=== PATIENT | male | born 1955 | race Caucasian/White ===

== ENCOUNTER → 2018-05-11 | Outpatient (CLI) | payer BC ==
[~2018-05-11] MED LIST: ACET500T68 PO; LOSA1TAB22 PO; MELO15TA23 PO; METO25TA4 PO
[2018-05-11 12:52] LABS: BASO # 0.1 x10^3/uL (0.0-0.2); BASO % 1 % (0-3); EOS # 0.1 x10^3/uL (0.0-0.7); EOS % 2 % (0-3); HEMATOCRIT 44.3 % (39.0-53.0); HEMOGLOBIN 15.2 g/dL (13.0-17.5); LYMPH # 1.8 x10^3/uL (1.0-4.8); LYMPH % 31 % (24-48); MEAN CORPUSCULAR HEMOGLOBIN 31 pg (25-35); MEAN CORPUSCULAR HGB CONC 34 g/dL (31-37); MEAN CORPUSCULAR VOLUME 90 fL (79-100); MONO # 0.5 x10^3/uL (0.0-1.1); MONO % 9 % (0-9); NEUT # 3.3 x10^3uL (1.8-7.7); NEUT % 57 % (31-73); PLATELET COUNT 257 x10^3/uL (140-400); RED CELL DISTRIBUTION WIDTH 14.2 % (11.5-14.5); WHITE BLOOD COUNT 5.8 x10^3/uL (4.0-11.0)
[2018-05-11 13:00] LABS: ALBUMIN 3.5 g/dL (3.4-5.0); CALCIUM 8.9 mg/dL (8.5-10.1); CREATININE 0.9 mg/dL (0.7-1.3); GFR 85.2
== END | disposition home or self-care (01) ==
LOC: SURGPAT 11:25
PROVIDERS: ATTEND Surgery
DX: Z01.818 Encounter for other preprocedural examination (principal); R22.1 Localized swelling, mass and lump, neck
CPT/HCPCS: 36415; 80048; 82040; 85025

== ENCOUNTER 2018-05-13 11:10 | Day surgery (SDC) | payer BC ==
[~2018-05-13] VITALS: Ht 177.8 cm; Wt 161.0 kg
[~2018-05-13 11:10] MED LIST changes: +HYDROmorphone 2 MG/ML VIAL IV PRN; +IV RINGERS,LACTATED 1000ML 1,000 ML IV SCH; +LIDOCAINE 1% PF 2 ML VIAL. ID PRN; +MORPHINE SULFATE 2 MG/ML VIAL. IV PRN; +ONDANSETRON PF 4 MG/2 ML VIAL. IV PRN; +PROCHLORPERAZINE 10 MG/2 ML VIAL. IV PRN; +fentaNYL PF VIAL 100 MCG/2 ML VIAL IV PRN
[2018-05-13] MEDS ORDERED: BUPIVACAINE-EPI 0.5%-1:200000 50 ML VIAL. ONE (11:40)
[2018-05-13] MEDS ORDERED: ONDANSETRON PF 4 MG/2 ML VIAL. ONE (12:15)
[2018-05-13] MEDS ORDERED: LIDOCAINE 2% PF Vial for OR 5 ML VIAL. ONE (12:15)
[2018-05-13] MEDS ORDERED: PROPOFOL 20 ML IV ONE (12:15)
[2018-05-13] MEDS ORDERED: DEXAMETHASONE SOD PHOS 20 MG/5 ML VIAL. ONE (12:15)
[2018-05-13] MEDS ORDERED: fentaNYL PF VIAL 100 MCG/2 ML VIAL ONE (12:16)
[2018-05-13] MEDS ORDERED: PHENYLEPHRINE in 0.9% NACL PF 1 MG/10 ML SYRINGE. IV ONE (12:51)
[2018-05-13] MEDS ORDERED: ePHEDrine PF IN SALINE 50 MG/5 ML DISP.SYRIN IV ONE (12:51)
[2018-05-13] MEDS ORDERED: ceFAZolin SODIUM 1 GM VIAL ONE (12:52)
[2018-05-13] MEDS ORDERED: VASOPRESSIN 20 UNIT/ML VIAL. ONE (12:55)
[2018-05-13] MEDS ORDERED: SEVOFLURANE 31 TO 60 MINUTES. IH ONE (13:13)
--- NOTE | 2018-05-13 14:13 | PDOC ---
BRIEF OPERATIVE NOTE Date: May 13, 2018 Pre-Op Diagnosis mass posterior right neck Post-Op Diagnosis same Procedure Performed excision Surgeon Man Anesthesia Type: General Blood Loss 10cc IV Fluid 400cc Specimens Obtained skin and subcutaneous tissue 9x8x2 cm Findings lobulated fatty tumor Complications none Operative Note Wk # [id number] STEPHANIE LEAL MD May 13, 2018 14:13
--- NOTE | 2018-05-13 14:14 | DISCH ---
DISCHARGE INSTRUCTIONS Condition on Discharge Condition on Discharge: Stable Activity After Discharge Activity Instructions for Disc: Activity as tolerated, Avoid exertion Lifting Instructions after Dis: No heavy lifting Driving Instructions after Dis: Do not drive today Diet after Discharge Diet after Discharge: Regular Wound Incision Care Wound/Incision Care: Ice to area for comfort Other wound/incision instructi: november shower Wednesday Follow-Up Follow up with: Man ten days STEPHANIE LEAL MD May 13, 2018 14:14
[2018-05-13 14:30] VITALS: BP 128/78
--- NOTE | 2018-05-13 17:43 | OP ---
DATE OF SURGERY: 05/13/2018 PREOPERATIVE DIAGNOSIS: Mass, posterior right neck. POSTOPERATIVE DIAGNOSIS: Mass, posterior right neck. PROCEDURE: Excision of same. SPECIMEN: Skin and subcutaneous mass 9 x 8 x 2 cm. SURGEON: Stephanie Leal MD ANESTHESIA: General LMA. ESTIMATED BLOOD LOSS: 10 mL. IV FLUID: 400 mL. INDICATIONS: The patient is an obese male with a large mass posterior to the right side of his neck here for excision. DESCRIPTION OF PROCEDURE: The patient brought to the operating suite, given a general LMA and placed in left lateral decubitus position. The right posterior neck and upper back were prepped and draped in usual sterile fashion. A marking pen has been used in the preop holding area to outline the incision with the patient's assistance. This was infiltrated with local anesthetic, incised and the skin underlying mass removed en bloc. Hemostasis with cautery. When a correct sponge count was obtained, the wound was closed with interrupted inverted 3-0 Vicryl for the subcutaneous tissue. Subcuticular 4-0 Monocryl with Steri-Strips for the skin. Sterile dressing applied. The patient was awakened from his anesthetic after being placed in the supine position. He was taken to the postoperative area in stable condition. STEPHANIE LEAL MD DR: WINNIE/tiffanie JOB#: [id number] / [id number]
--- NOTE | 2018-05-17 10:09 | PATHOLOGY ---
[facility] Accession Number: [id number] . 01 Material submitted: . SKIN SUBCUTANEOUS MASS RIGHT POSTERIOR NECK . 01 Clinical history: . Neck mass. . 02 Diagnosis: Skin and subcutaneous tissue, right posterior neck mass excision: - Lipoma. - Solar degeneration of attached skin. (JPM:[facility] [place]; 05/16/2018) QMS/05/16/2018 . 02 Comment: There is no evidence of malignancy. . 02 Electronically signed: . Pawan Loza MD, Pathologist NPI- [id number] . 01 Gross description: . Received in formalin labeled "Rangel, Usman, skin and subcutaneous mass right posterior neck" is a lepe-yellow encapsulated lobulated mass measuring 7.0 x 4.0 x 3.9 cm. There is an attached portion of skin on one aspect which measures 7.7 x 2.0 x 0.4 cm. The external surface is inked black. The specimen is sectioned to reveal yellow-lepe lobulated cut surface without hemorrhage or necrosis. Insurance Risk Surveyor sections are submitted in cassettes A1-A4, with two sections in each cassette. ([facility] [place]; 05/14/2018) SYC/SYC . 02 Pathologist provided ICD-10: D17.79 . 02 CPT . 784514 Specimen Comment: A courtesy copy of this report has been sent to Specimen Comment: [phone], . Specimen Comment: Report sent to / DR SHEN Performed at: 01 [facility] [address], [place] [id number] MD Obed Masterson MD Phone: [phone] Performed at: 02 [facility] [address] [place], [place] [id number] MD Pawan Loza MD Phone: [phone]
== END 2018-05-13 14:30 | disposition home or self-care (01) ==
LOC: SURG 11:10
PROVIDERS: ATTEND Surgery
DX: D17.0 Benign lipomatous neoplasm of skin and subcutaneous tissue of head, face and neck (principal); I10 Essential (primary) hypertension; M19.90 Unspecified osteoarthritis, unspecified site; E66.01 Morbid (severe) obesity due to excess calories; Z68.43 Body mass index [BMI] 50.0-59.9, adult; Z98.890 Other specified postprocedural states; Z96.643 Presence of artificial hip joint, bilateral; Z72.89 Other problems related to lifestyle; Z79.899 Other long term (current) drug therapy
CPT/HCPCS: 21552; 88304; A7015; J0690; J1100; J2001; J2370; J2405; J2704; J3010; J3490

== ENCOUNTER → 2018-11-25 | Outpatient (CLI) | payer BC ==
[~2018-11-25] MED LIST changes: -HYDROmorphone 2 MG/ML VIAL IV PRN; -IV RINGERS,LACTATED 1000ML 1,000 ML IV SCH; -LIDOCAINE 1% PF 2 ML VIAL. ID PRN; -MORPHINE SULFATE 2 MG/ML VIAL. IV PRN; -ONDANSETRON PF 4 MG/2 ML VIAL. IV PRN; -PROCHLORPERAZINE 10 MG/2 ML VIAL. IV PRN; -fentaNYL PF VIAL 100 MCG/2 ML VIAL IV PRN
--- NOTE | 2018-11-28 17:38 | KCIC ---
EXAM: Lumbar spine MRI without contrast. HISTORY: Pain. TECHNIQUE: Multiplanar, multisequence magnetic resonance imaging of the lumbar spine was performed without contrast. COMPARISON: None. FINDINGS: There is mild lumbar hyperlordosis. There is grade 1 anterolisthesis of L5 on S1, measuring 2 mm. There is slight retrolisthesis of L1 on L2, measuring 2 mm. There is degenerative endplate remodeling with anterior spurring primarily at the lower thoracic and upper lumbar levels and lumbosacral junction. There are few tiny endplate Schmorl's nodes. There is slight disc desiccation at multiple levels. There is no suspicious osseous lesion. There are few incidental osseous hemangiomas. The conus terminates at L1-L2. There is minimal edema within the right L5 transverse process, likely degenerative or due to a slight stress reaction. At T11-T12, there is a tiny posterior central disc protrusion which effaces the ventral thecal sac. There is no stenosis. At T12-L1, there is no stenosis. At L1-L2, there is a mild disc bulge and endplate remodeling. There is mild left facet arthropathy. There is no stenosis. At L2-L3, there is no stenosis. At L3-L4, there is a mild disc bulge with posterior annular tear. There is minimal facet arthropathy. There is mild bilateral stenosis. At L4-L5, there is mild left facet arthropathy. There is no stenosis. At L5-S1, there is a shallow posterior central to left paracentral disc protrusion and annular tear superimposed on a disc bulge and endplate remodeling. There is moderate right and mild left facet arthropathy. There is mild bilateral foraminal stenosis. There is slight effacement of the left lateral recess with near abutment of the traversing left S1 nerve root. IMPRESSION: 1. Mild multilevel degenerative change within the thoracic and lumbar spine, described in detail above. 2. No acute finding. Electronically signed by: Nika Perez MD (11/28/2018 5:35 PM) [facility]
== END | disposition home or self-care (01) ==
LOC: KCIC MRI 15:47
DX: M48.061 Spinal stenosis, lumbar region without neurogenic claudication (principal); M47.895 Other spondylosis, thoracolumbar region; M51.24 Other intervertebral disc displacement, thoracic region; M51.27 Other intervertebral disc displacement, lumbosacral region; M12.88 Other specific arthropathies, not elsewhere classified, other specified site; D18.09 Hemangioma of other sites
CPT/HCPCS: 72148

== ENCOUNTER → 2019-01-19 | Outpatient (CLI) | payer BC ==
[~2019-01-19] MED LIST changes: +BUPIVACAINE MPF 0.25% 10 ML VIAL. ONE; +IOHEXOL 180 MG/ML 10 ML VIAL. ONE; +methylPREDNISolone ACETATE 40 MG/ML VIAL. ONE; +methylPREDNISolone ACETATE 80 MG/ML VIAL. ONE
--- NOTE | 2019-01-19 19:07 | PAIN ---
DATE OF SERVICE: 01/19/2019 INITIAL CONSULTATION FOR PAIN CLINIC CHIEF COMPLAINT: Low back pain on the right. HISTORY OF PRESENT ILLNESS: The patient is a 63-year-old male who presents with history of pain in the low back since about July for about 5 months, increasing without any specific injury or action he is aware of, but is gradually increasing, worse on the right side of the low back without specific radiation to lower extremity, occasionally into the right gluteus, but very rarely. The patient reports it is sharp and stabbing, intermittent in intensity, worse with standing, walking, also worse with lying flat. The patient reports that he has been sleeping in a reclining chair over the past few weeks and this has decreased his pain to a moderate extent. The patient reports still significant pain in the right low back with walking and standing, especially with standing upright, better with forward flexion, but with extension of the lumbar spine it does increase. The patient reports he has had a previous therapies in the past, chiropractic treatments in the low back as well as epidural injections, which were never long-term successful for similar pain; nothing recently within the last 6 months. The patient reports a disability rate from 0-10, 10 being the worst, is a 5 with family and home responsibilities, 4 with recreation, 9 with social activities, 7 with occupational activities, 10 with sexual behavior, 2 with self-care and 1 with life support activities. The patient did have an MRI scan of the lumbar spine showing multilevel degenerative change L5-S1 shallow posterior central to left paracentral disk protrusion and annular tear superimposed on disk bulging and endplate remodeling with near abutment of the traversing left S1 nerve root and mild left facet arthropathy at L4-L5 as well as facet arthropathy at L5-S1. The patient reports no loss of motor function, but some fatigability with the right leg occasionally, but only rarely. PAST MEDICAL HISTORY: Significant for hypertension, arthritis, urinary frequency. PREVIOUS SURGERY: Include bilateral hip replacement in 2017 and 2011; biceps repair on the left and elbow surgery on the right. CURRENT MEDICATIONS: Include meloxicam, losartan and extra strength Tylenol. ALLERGIES: The patient has no known drug allergies. FAMILY HISTORY: Significant for no major medical problems or conditions that he is aware of. SOCIAL HISTORY: The patient drinks alcohol very seldom; does not smoke, does not use any illegal, illicit or recreational drugs. He is and lives with his spouse, has 3 children living at home and lives in [place], [place]. REVIEW OF SYSTEMS: The patient's review of systems is positive for those items mentioned in history of present illness. All systems reviewed and otherwise negative. It is complete, full and well documented on the patient's chart. PHYSICAL EXAMINATION: VITAL SIGNS: The patient's blood pressure is 159/94, pulse 87, respirations 18, temperature 98.3 degrees Fahrenheit, height is 5 feet 10 inches, and weight is 314 pounds. GENERAL: The patient is awake, alert, oriented, appropriate, very pleasant demeanor. HEENT: Head is normocephalic, atraumatic. Extraocular movements are intact and symmetrical. Oral cavity: Mucous membranes moist and pink. Dentition is intact. NECK: Shows anterior throat supple without palpable lymphadenopathy noted. Swallow reflex symmetrical. CHEST: Shows normal on inspection. Breath sounds are clear to auscultation bilaterally. HEART: Shows S1, S2 clear. No murmurs auscultated. ABDOMEN: Soft, nontender, nondistended, obese, but no organomegaly is noted. No rebound or guarding demonstrated. BACK: Shows spine grossly in the midline. Normal appearing thoracic kyphosis and minor flattening of lumbar lordotic curvature. Lumbar paraspinous muscle shows symmetrical on inspection. On palpation shows some moderate tenderness more on the right than the left in the low lumbar distribution, but without asymmetry. The patient has good rotational motion with some moderate tenderness with right lateral rotation as well as with extension, significant increase in tenderness on the right side only, not the left. Left lateral rotation is performed without pain as is forward flexion at 45 degrees. EXTREMITIES: The patient's lower extremities show deep tendon reflexes at 2+ in the patellar, 1+ in tendo calcaneus tendons. Motor exam is strong with 5/5 dorsiflexion, extension, quadriceps and hamstring flexion and are symmetrical. Peripheral pulses are 1+ posterior tibia. No peripheral edema is noted. Lower extremities are warm and dry to touch, equal in color and appearance. Straight leg raise noted to be negative for reproduction of any radicular symptoms bilaterally. Gaenslen's and Jose's maneuvers are negative bilaterally as well. SKIN: Warm and dry, good turgor. No edema. No sores, rashes or bruising. NEUROLOGIC: The patient walked with a normal appearing gait, does not appear to favor the right or left lower extremity, not using any assistive devices to ambulate. IMPRESSION: This is a 63-year-old male with, 1. About a 5-month history of increasing pain in low back on the right side. 2. MRI scan of lumbar spine as noted. 3. Arthritis. 4. Hypertension. 5. Obesity. PLAN: Options were discussed with the patient including conservative medical management, physical therapy, interventional techniques. He would like to pursue interventional techniques. We discussed right-sided L4-L5 and L5-S1 facet joint injections using description as well as anatomical models to describe the procedure. The patient would like to proceed. Risks were discussed including but not limited to bleeding, infection, possibility of intravascular injection sequelae, epidural hematoma and subsequent neurological compromise, dural puncture, headaches, spinal cord and/or nerve damage, side effects of steroid medication, exposure to fluoroscopy and poor results regarding pain control. The patient understands and wished to proceed. The patient will return to clinic in approximately 2 weeks for followup. He was counseled on return appointment, activity level and side effects to be aware of. DIAGNOSES: Lumbar degenerative disk disease, lumbar spondylosis and lumbosacral spondylosis. PROCEDURES: Right-sided L4-L5 and L5-S1 facet joint injection using C-arm fluoroscopic guidance under sterile prep and drape using local anesthetic. MEDICATION INJECTED: A total of 120 mg Depo-Medrol plus 2 mL of 0.25% bupivacaine and 1.5 mL of Isovue for contrast. CONDITION AT DISCHARGE: Stable. The patient tolerated procedure well, had no complications. TRISH PORTER MD DR: LUZ ELENA/tiffanie JOB#: [id number] / [id number] Jan Griggs
== END ==
LOC: PNCL 08:15
PROVIDERS: ATTEND Anesthesiology
DX: M47.817 Spondylosis without myelopathy or radiculopathy, lumbosacral region (principal); M51.36 Other intervertebral disc degeneration, lumbar region; M54.5 Low back pain; I10 Essential (primary) hypertension; Z87.39 Personal history of other diseases of the musculoskeletal system and connective tissue; Z96.643 Presence of artificial hip joint, bilateral; Z98.890 Other specified postprocedural states; Z72.89 Other problems related to lifestyle
CPT/HCPCS: 64493; 64494; J1030; J1040; J3490; Q9965

== ENCOUNTER → 2019-02-15 | Outpatient (CLI) | payer BC ==
[~2019-02-15] MED LIST changes: -BUPIVACAINE MPF 0.25% 10 ML VIAL. ONE; -IOHEXOL 180 MG/ML 10 ML VIAL. ONE; -methylPREDNISolone ACETATE 40 MG/ML VIAL. ONE; -methylPREDNISolone ACETATE 80 MG/ML VIAL. ONE
--- NOTE | 2019-02-15 11:50 | PAIN ---
DATE OF SERVICE: 02/15/2019 PROGRESS NOTE FOR PAIN CLINIC DIAGNOSES: Lumbar degenerative disk disease with lumbar and lumbosacral spondylosis. HISTORY OF PRESENT ILLNESS: The patient 63-year-old male, who returns for followup status post right-sided L4-L5 and L5-S1 facet joint injections on 01/19/2019. The patient did very well, reports about a 70-80% improvement in the right low back pain. The patient reports he feels well throughout the day, except when he lies down at night to go to sleep, the pain comes back on the right side. Otherwise, when he is walking, standing, changing positions, sitting, does not bother him at all, has 0 pain. The patient reports the pain at night, it is aching, sharp pain, it is cramping on the right side; rates a 7 on a scale of 10 at its worst, 5 on average and a 2-3 at its least; but it is only present with lying down. The patient reports no new motor or sensory deficits, no new bowel or bladder incontinence. He has been sleeping in a reclining chair, which does not cause the pain to be perfused and he sleeps through the night without pain usually about 8 hours a night. The patient reports no new motor or sensory deficits, no new bowel or bladder incontinence or other complaints. PHYSICAL EXAMINATION: VITAL SIGNS: The patient's blood pressure is 151/83, pulse 76, respirations are 18, temperature 98.3 degrees Fahrenheit. Height is 5 feet 10 inches, weight is 347 pounds. GENERAL: The patient is awake, alert, oriented, appropriate, very pleasant demeanor. HEENT: Shows normocephalic, atraumatic. Extraocular muscles are intact and symmetrical. Oral cavity, mucous membranes are moist and pink, dentition is intact. NECK: Shows anterior throat supple without palpable lymphadenopathy noted. Swallow reflex is symmetrical. CHEST: Shows normal on inspection. Breath sounds clear bilaterally. HEART: Shows S1, S2 clear. ABDOMEN: Soft, nontender and nondistended. BACK: Shows spine grossly in the midline. Lumbar paraspinous muscle shows symmetrical on inspection; with palpation, there is some very mild tenderness in the low lumbar distribution on the right side only, but it is symmetrical without evidence of atrophy or hypertrophy, no trigger points, no asymmetry. The patient shows good rotational motion with much better ease and comfort with extension and with axial loading with only very minor pain in the right lower back and forward flexion performed without pain. Right and left lateral rotation performed without pain greater than 10 degrees bilaterally. EXTREMITIES: Lower extremities show deep tendon reflexes are 2+ in the patellar tendons and 1+ in the tendo-calcaneus tendons and are symmetrical. Motor exam is strong with 5/5 dorsiflexion and extension and equal. Options were discussed with the patient. The patient's old chart was reviewed as his current medication regimen updated. Current review of systems updated today as well. We will hold on any further injections at this time as the patient is doing quite a bit better. He would like to increase his activity and see how he feels in the future, also he is contemplating a positional hospital bed for sleeping and we will give him more time. The patient was encouraged to increase his activity as tolerated, also maintain stretching and strengthening exercises. If pain returns or begins to return, he will contact the office at that time. TRISH PORTER MD DR: LUZ ELENA/tiffanie JOB#: [id number] / [id number]
== END | disposition home or self-care (01) ==
LOC: PNCL 08:02
PROVIDERS: ATTEND Anesthesiology
DX: M47.816 Spondylosis without myelopathy or radiculopathy, lumbar region (principal); M51.36 Other intervertebral disc degeneration, lumbar region
CPT/HCPCS: G0463

== ENCOUNTER → 2019-07-07 | Outpatient (CLI) | payer BC ==
[~2019-07-07] MED LIST changes: +BUPIVACAINE MPF 0.25% 10 ML VIAL. ONE; +IOHEXOL 180 MG/ML 10 ML VIAL. ONE; +methylPREDNISolone ACETATE 40 MG/ML VIAL. ONE; +methylPREDNISolone ACETATE 80 MG/ML VIAL. ONE
--- NOTE | 2019-07-07 11:56 | PAIN ---
DATE OF SERVICE: 07/07/2019 PROGRESS NOTE FOR PAIN CLINIC DIAGNOSES: Lumbar degenerative disk disease with lumbar and lumbosacral spondylosis. HISTORY OF PRESENT ILLNESS: The patient is a 63-year-old male who returns for followup status post right-sided facet joint injections, L4-L5 and L5-S1 on 01/19/2019. The patient did very well with about 80% improvement. We had seen him about a month later, he was doing much better and I elected to wait for any further injections at that time. The patient reports that after about 3-4 months following the injection, the pain began to return in the right low back, worse with sitting, standing, changing positions, better with sleeping in a reclining position, but not sleeping flat on his bed. He has been sleeping in a reclining chair. The patient reports no symptoms on the left side and the right side is primarily noticeable with standing and walking. The patient reports it is 7 on a scale of 10 at its worst over the past week, 4-5 on an average, 2 at its least and is a 4 today. The patient reports it is aching, sharp, dull without radiation to lower extremity. The patient reports no new motor or sensory deficits, no new bowel or bladder incontinence. PHYSICAL EXAMINATION: VITAL SIGNS: The patient's blood pressure 135/85, pulse 85, respirations 16, temperature 98.0 degrees Fahrenheit, weight is 352 pounds. GENERAL: The patient is awake, alert, oriented, appropriate, very pleasant demeanor. HEENT: Shows normocephalic, atraumatic. Extraocular movements are intact and symmetrical. Oral cavity: Mucous membranes moist and pink. Dentition is intact. NECK: Shows anterior throat supple without palpable lymphadenopathy noted. Swallow reflex symmetrical. CHEST: Shows normal on inspection. Breath sounds are clear bilaterally. HEART: Shows S1, S2 clear. No murmurs auscultated. ABDOMEN: Soft, nontender, nondistended. No palpable organomegaly is noted. No rebound or guarding demonstrated. BACK: Shows spine grossly in the midline. Normal-appearing thoracic kyphosis and lumbar lordotic curvature. Lumbar paraspinous muscle shows symmetrical on inspection, on palpation shows some moderate tenderness diffusely in the low lumbar distribution bilaterally, but only diffusely with rotation of motion; however, the patient has significant tenderness with greater than 10 degrees right rotation of motion of lumbar spine on the right side as well as extension of the lumbar spine and axial loading in the low back with significant pain increased on the right side only. This is better with forward flexion at 45 degrees. EXTREMITIES: Lower extremities show deep tendon reflexes 2+ in the patellar, 1+ tendo-calcaneus tendons. Motor exam is strong with 5/5 dorsiflexion, extension, quadriceps and hamstring flexion symmetrical. Peripheral pulses are 1+ posterior tibia. No peripheral edema is noted bilaterally. Options were discussed with the patient. The patient's old chart was reviewed as his current medication regimen updated. Current review of systems updated today as well. We will proceed with a right-sided L4-L5 and L5-S1 facet joint injections today with fluoroscopic guidance. Risks were again discussed including, but not limited to bleeding, infection, possibility of epidural hematoma, subsequent neurological compromise, dural puncture, headaches, spinal cord and/or nerve damage, side effects of steroid medication as well as poor results regarding pain control. The patient understands and wished to proceed. The patient will return to the clinic in approximately 2 weeks for followup. He was counseled on return appointment, activity level and side effects to be aware of. DIAGNOSES: Lumbar and lumbosacral spondylosis. PROCEDURE: Lumbar right-sided L4-L5 and L5-S1 facet joint injections using C-arm fluoroscopic guidance under sterile prep and drape using local anesthetic. MEDICATION INJECTED: A total of 120 mg Depo-Medrol plus 2 mL of 0.25% bupivacaine and 1 mL of contrast. CONDITION AT DISCHARGE: Stable. The patient tolerated the procedure well, had no complications. TRISH PORTER MD DR: LUZ ELENA/tiffanie JOB#: [id number] / [id number]
== END ==
LOC: PNCL 08:23
PROVIDERS: ATTEND Anesthesiology
DX: M47.817 Spondylosis without myelopathy or radiculopathy, lumbosacral region (principal); M51.36 Other intervertebral disc degeneration, lumbar region
CPT/HCPCS: 64493; 64494; J1030; J1040; J3490; Q9965

== ENCOUNTER → 2019-08-30 | Outpatient (CLI) | payer BC ==
[~2019-08-30] MED LIST changes: -methylPREDNISolone ACETATE 40 MG/ML VIAL. ONE
--- NOTE | 2019-08-30 11:03 | PAIN ---
DATE OF SERVICE: 08/30/2019 PROGRESS NOTE FOR PAIN CLINIC DIAGNOSES: Lumbar degenerative disk disease, lumbar and lumbosacral spondylosis. HISTORY OF PRESENT ILLNESS: The patient is a 63-year-old male who returns for followup status post right L4-L5 and L5-S1 facet joint injections. Most recently on 07/07/2019, the patient did very well with about 85% improvement for about 3 weeks. The patient reports the pain returns now, it is actually worse than it was before in the low right back radiating across the back, mostly on the right side. The patient reports it is worse with walking, standing, changing positions, better with sitting or lying down, does awake him from sleep now. Initially for about the first 3 weeks, he was doing increased distance walking, doing work activities, household activities, changing positions with greater ease and comfort. The patient reports the pain is returning now as a 10 on a scale of 10 at its worst in the past week, 5 on average and 3 at its least and is a 5 today. The patient reports it is shooting, aching, stabbing and becoming more constant with weightbearing, especially with extension of the lumbar spine or reaching. The patient reports no new motor or sensory deficits, no new bowel or bladder incontinence, better with sitting down. PHYSICAL EXAMINATION: VITAL SIGNS: The patient's blood pressure 126/93, pulse 83, respirations 16, temperature 98.1 degrees Fahrenheit, height is 5 feet 10 inches and weight is 357 pounds. GENERAL: The patient is awake, alert, oriented, appropriate, very pleasant demeanor. HEENT: Head shows normocephalic, atraumatic. Extraocular movements are intact and symmetrical. Oral cavity: Mucous membranes moist and pink. Dentition is intact. NECK: Shows anterior throat supple without palpable lymphadenopathy noted. Swallow reflex symmetrical. CHEST: Shows normal on inspection. Breath sounds are clear bilaterally. HEART: Shows S1, S2 clear. No murmurs auscultated. ABDOMEN: Obese, nontender, nondistended. BACK: Shows spine grossly in the midline. Normal-appearing thoracic kyphosis and some minor flattening of lumbar lordotic curvature. Lumbar paraspinous muscle shows symmetrical on inspection, on palpation shows some moderate tenderness, more on the right than the left but symmetrical without evidence of atrophy or hypertrophy. The patient has good rotational motion, some moderate tenderness with right lateral rotation past 10 degrees, but not with left lateral rotation. Extension causes significant pain in the low back on the right side only, better with forward flexion and decreased at 45 degrees. EXTREMITIES: The patient's lower extremities show deep tendon reflexes 2+ in the patellar and 1+ tendo calcaneus tendons. Motor exam is strong with 5/5 dorsiflexion, extension, quadriceps and hamstring flexion symmetrical. Peripheral pulses are 1+ posterior tibia. No peripheral edema is noted bilaterally. Options were discussed with the patient. The patient's old chart was reviewed as his current medication regimen updated. Current review of systems updated today as well. We will proceed with a repeat right L4-L5 and L5-S1 facet joint injections with fluoroscopic guidance. Risks were again discussed including, but not limited to bleeding, infection, possibility of epidural hematoma, subsequent neurological compromise, dural puncture, headaches, spinal cord and/or nerve damage, side effects of steroid medication and poor results regarding pain control. The patient understands and wished to proceed. The patient will return to clinic in approximately 2 weeks for followup. He was counseled on return appointment, activity level and side effects to be aware of. We also discussed possibility of radiofrequency ablation in the future. The patient had similar results of the pain is returning as it was after the last injection. DIAGNOSIS: Lumbar and lumbosacral spondylosis. PROCEDURE: Lumbar L4-L5 and L5-S1 facet joint injections using C-arm fluoroscopic guidance under sterile prep and drape using local anesthetic. MEDICATION INJECTED: A total of 2 mL of 0.25% bupivacaine and 1 mL of contrast and 80 mg total Depo-Medrol. CONDITION AT DISCHARGE: Stable. The patient tolerated the procedure well, had no complications. TRISH PORTER MD DR: LUZ ELENA/tiffanie JOB#: [id number] / [id number]
== END | disposition home or self-care (01) ==
LOC: PNCL 08:20
PROVIDERS: ATTEND Anesthesiology
DX: M47.816 Spondylosis without myelopathy or radiculopathy, lumbar region (principal); M51.36 Other intervertebral disc degeneration, lumbar region; Z98.890 Other specified postprocedural states
CPT/HCPCS: 64493; 64494; J1040; J3490; Q9965